=== PATIENT | female | born 1985 | race African-American/Black ===

== ENCOUNTER 2016-06-26 10:09 | Emergency (ER) | payer OTHER ==
[~2016-06-26] VITALS: Ht 154.9 cm; Wt 59.0 kg
[~2016-06-26 10:09] MED LIST: CIPROFLOXACIN500 M1 PO; DIFLUCAN200 MG PO; MACROBID 100 M100 M1 PO
[2016-06-26 10:14] VITALS: BP 106/68
[2016-06-26 11:32] LABS: URINE BILIRUBIN NEGATIVE (Negative); URINE BLOOD NEGATIVE (Negative); URINE COLOR YELLOW; URINE GLUCOSE-RANDOM* NEGATIVE (Negative); URINE KETONES NEGATIVE (Negative); URINE NITRITE NEGATIVE (Negative); URINE PROTEIN (DIPSTICK) NEGATIVE (Negative); URINE UROBILINOGEN 0.2 E.U./dl (0.2-1.0)
== END 2016-06-26 11:39 | disposition home or self-care (01) ==
LOC: ER 10:09
PROVIDERS: Physician Assistant
DX: O23.592 Infection of other part of genital tract in pregnancy, second trimester (principal); Z87.891 Personal history of nicotine dependence; Z11.3 Encounter for screening for infections with a predominantly sexual mode of transmission

== ENCOUNTER 2016-11-01 15:56 | Emergency (ER) | payer OTHER ==
[~2016-11-01] VITALS: Ht 154.9 cm; Wt 65.8 kg
[2016-11-01] MEDS ORDERED: CYCLOBENZAPRINE5 MG PO (16:02)
[2016-11-01] MEDS ORDERED: ENDOCET 5-3251 EACH PO (16:03)
[2016-11-01 17:28] LABS: ABSOLUTE NEUTROPHILS 4.5 thou/uL (1.4-8.2); BASOPHILS 0.4 % (0.0-2.0); EOSINOPHILS 3.3 % (0.0-3.0); HEMATOCRIT 33.2 % (37.0-47.0); HEMOGLOBIN 11.4 gm/dL (12.0-15.0); MCH 31.1 pg (26.0-34.0); MCHC 34.4 g/dL (28.0-37.0); MCV 90.4 fL (80.0-100.0); MONOCYTES 4.5 % (1.0-8.0); PLATELET COUNT 349 thou/uL (150-400); POLYS 69.8 % (36.0-66.0); RBC 3.67 mil/uL (4.20-5.00); RDW 14.6 % (10.5-14.5); WBC 6.5 thou/uL (4.0-11.0)
[2016-11-01 17:31] LABS: MANUAL DIFF NO
[2016-11-01 17:36] LABS: CALCIUM 8.9 mg/dL (8.5-10.1); CREATININE 0.6 mg/dL (0.6-1.0); POTASSIUM 3.4 mmol/L (3.5-5.1)
[2016-11-01] MEDS ORDERED: REGLAN 10 MG TA10 MG PO (19:09)
[2016-11-01 19:14] VITALS: BP 138/89
== END 2016-11-01 19:15 | disposition home or self-care (01) ==
LOC: ER 15:56
PROVIDERS: Physician Assistant
DX: O89.4 Spinal and epidural anesthesia-induced headache during the puerperium (principal); Z87.891 Personal history of nicotine dependence

== ENCOUNTER 2017-04-18 15:11 | Emergency (ER) | payer OTHER ==
[~2017-04-18] VITALS: Ht 149.9 cm; Wt 59.0 kg
[~2017-04-18 15:11] MED LIST changes: +CYCLOBENZAPRINE5 MG PO; +ENDOCET 5-3251 EACH PO; +REGLAN 10 MG TA10 MG PO
[2017-04-18 15:36] LABS: URINE BILIRUBIN NEGATIVE (Negative); URINE BLOOD NEGATIVE (Negative); URINE CLARITY CLEAR; URINE COLOR YELLOW; URINE GLUCOSE-RANDOM* NEGATIVE (Negative); URINE KETONES NEGATIVE (Negative); URINE LEUKOCYTES NEGATIVE (Negative); URINE NITRITE NEGATIVE (Negative); URINE PROTEIN (DIPSTICK) 2+ (Negative); URINE SPECIFIC GRAVITY 1.025 (1.005-1.035)
[2017-04-18 15:44] LABS: CASTS None Seen /LPF (None Seen); MUCUS >6 Heavy strn/LPF (None Seen); SQUAMOUS 0-3 Few /LPF (0-3); URINE WBC 0-5 Rare /HPF (0-5)
[2017-04-18 15:45] LABS: CRYSTALS None Seen /LPF (None Seen); URINE RBC 0-2 Rare /HPF (0-2)
[2017-04-18] MEDS ORDERED: KEFLEX500 M1 PO (15:58)
[2017-04-18] MEDS ORDERED: FLAGYL500 MG PO (16:01)
== END 2017-04-18 16:26 | disposition home or self-care (01) ==
LOC: ER 15:11
PROVIDERS: Physician Assistant
DX: T19.2XXA Foreign body in vulva and vagina, initial encounter (principal); N39.0 Urinary tract infection, site not specified; N76.0 Acute vaginitis; X58.XXXA Exposure to other specified factors, initial encounter; Y93.89 Activity, other specified; Y92.89 Other specified places as the place of occurrence of the external cause; Y99.8 Other external cause status

== ENCOUNTER 2017-05-27 09:40 | Emergency (ER) | payer OTHER ==
[~2017-05-27] VITALS: Ht 149.9 cm; Wt 59.0 kg
[~2017-05-27 09:40] MED LIST changes: +FLAGYL500 MG PO; +KEFLEX500 M1 PO
[2017-05-27 09:52] VITALS: BP 158/115
[2017-05-27 10:02] LABS: URINE BILIRUBIN NEGATIVE (Negative); URINE BLOOD 1+ (Negative); URINE CLARITY CLEAR; URINE COLOR YELLOW; URINE GLUCOSE-RANDOM* NEGATIVE (Negative); URINE KETONES NEGATIVE (Negative); URINE LEUKOCYTES NEGATIVE (Negative); URINE NITRITE NEGATIVE (Negative); URINE PROTEIN (DIPSTICK) NEGATIVE (Negative); URINE UROBILINOGEN 0.2 E.U./dl (0.2-1.0)
[2017-05-27 10:15] LABS: SQUAMOUS 0-3 Few /LPF (0-3)
[2017-05-27 10:16] LABS: BACTERIA 1-9 Few /HPF (None Seen); CASTS None Seen /LPF (None Seen); CRYSTALS None Seen /LPF (None Seen); URINE RBC 0-2 Rare /HPF (0-2); URINE WBC None Seen /HPF (0-5)
== END 2017-05-27 10:29 | disposition home or self-care (01) ==
LOC: ER 09:40
PROVIDERS: Emergency Medicine
DX: N89.8 Other specified noninflammatory disorders of vagina (principal); L29.8 Other pruritus; Z87.891 Personal history of nicotine dependence

== ENCOUNTER 2018-06-06 15:08 | Emergency (ER) | payer OTHER ==
[~2018-06-06] VITALS: Ht 149.9 cm; Wt 59.0 kg
[2018-06-06 16:58] LABS: HEMATOCRIT 39.2 % (37.0-47.0); HEMOGLOBIN 13.3 gm/dL (12.0-15.0); MCH 31.1 pg (26.0-34.0); MCHC 33.9 g/dL (28.0-37.0); MCV 91.9 fL (80.0-100.0); RBC 4.27 mil/uL (4.20-5.00); RDW 12.5 % (10.5-14.5)
[2018-06-06 17:06] LABS: CALCIUM 10.1 mg/dL (8.5-10.1); CREATININE 0.5 mg/dL (0.6-1.0); POTASSIUM 4.4 mmol/L (3.5-5.1)
[2018-06-06 18:46] VITALS: BP 147/83
== END 2018-06-06 18:47 | disposition home or self-care (01) ==
LOC: ER 15:08
PROVIDERS: Emergency Medicine
DX: O20.0 Threatened abortion (principal); Z3A.01 Less than 8 weeks gestation of pregnancy; Z87.891 Personal history of nicotine dependence

== ENCOUNTER 2018-07-09 12:29 | Emergency (ER) | payer OTHER ==
[~2018-07-09] VITALS: Ht 149.9 cm; Wt 59.0 kg
[2018-07-09 12:50] LABS: URINE BILIRUBIN NEGATIVE (Negative); URINE BLOOD NEGATIVE (Negative); URINE CLARITY CLEAR; URINE COLOR YELLOW; URINE GLUCOSE-RANDOM* NEGATIVE (Negative); URINE KETONES NEGATIVE (Negative); URINE LEUKOCYTES-REFLEX NEGATIVE (Negative); URINE NITRITE-REFLEX NEGATIVE (Negative); URINE PROTEIN (DIPSTICK) NEGATIVE (Negative); URINE SPECIFIC GRAVITY <= 1.005 (1.005-1.035); URINE UROBILINOGEN 0.2 E.U./dl (0.2-1.0)
[2018-07-09 15:18] VITALS: BP 134/78
== END 2018-07-09 15:19 | disposition home or self-care (01) ==
LOC: ER 12:29
PROVIDERS: Physician Assistant
DX: O20.9 Hemorrhage in early pregnancy, unspecified (principal); O21.8 Other vomiting complicating pregnancy; O10.911 Unspecified pre-existing hypertension complicating pregnancy, first trimester; Z3A.11 11 weeks gestation of pregnancy; Z87.891 Personal history of nicotine dependence

== ENCOUNTER 2018-07-25 09:12 | Emergency (ER) | payer OTHER ==
[~2018-07-25] VITALS: Ht 157.5 cm; Wt 63.5 kg
[2018-07-25 09:35] LABS: URINE BLOOD 1+ (Negative); URINE CLARITY CLEAR; URINE COLOR YELLOW; URINE GLUCOSE-RANDOM* NEGATIVE (Negative); URINE KETONES NEGATIVE (Negative); URINE LEUKOCYTES-REFLEX NEGATIVE (Negative); URINE NITRITE-REFLEX NEGATIVE (Negative); URINE PROTEIN (DIPSTICK) TRACE (Negative)
[2018-07-25 09:39] LABS: ICTOTEST (BILI CONFIRMATORY) Negative (Negative); URINE BILIRUBIN NEGATIVE (Negative)
[2018-07-25 09:43] LABS: CASTS None Seen /LPF (None Seen); CRYSTALS None Seen /LPF (None Seen); MUCUS >6 Heavy strn/LPF (None Seen); SQUAMOUS None Seen /LPF (0-3); URINE RBC 0-2 Rare /HPF (0-2); URINE WBC-REFLEX 6-15 Few /HPF (0-5)
[2018-07-25] MEDS ORDERED: FLAGYL500 M1 PO (12:41)
[2018-07-25 12:57] VITALS: BP 115/82
== END 2018-07-25 12:58 | disposition home or self-care (01) ==
LOC: ER 09:12
PROVIDERS: Emergency Medicine
DX: O20.0 Threatened abortion (principal); O16.1 Unspecified maternal hypertension, first trimester; Z87.891 Personal history of nicotine dependence; Z3A.13 13 weeks gestation of pregnancy

== ENCOUNTER 2018-10-31 10:50 | Emergency (ER) | payer OTHER ==
[~2018-10-31] VITALS: Ht 149.9 cm; Wt 59.0 kg
[~2018-10-31 10:50] MED LIST changes: +FLAGYL500 M1 PO
[2018-10-31 11:19] LABS: URINE BILIRUBIN NEGATIVE (Negative); URINE BLOOD NEGATIVE (Negative); URINE CLARITY CLEAR; URINE COLOR YELLOW; URINE GLUCOSE-RANDOM* NEGATIVE (Negative); URINE KETONES NEGATIVE (Negative); URINE LEUKOCYTES-REFLEX TRACE (Negative); URINE NITRITE-REFLEX NEGATIVE (Negative); URINE PROTEIN (DIPSTICK) NEGATIVE (Negative); URINE UROBILINOGEN 0.2 E.U./dl (0.2-1.0)
[2018-10-31 12:13] LABS: SQUAMOUS >10 Many /LPF (0-3)
[2018-10-31 12:14] LABS: CASTS None Seen /LPF (None Seen); URINE WBC 0-5 Rare /HPF (0-5)
[2018-10-31 12:15] LABS: CRYSTALS None Seen /LPF (None Seen); URINE RBC None Seen /HPF (0-2)
[2018-10-31] MEDS ORDERED: DIFLUCAN200 MG PO (12:15)
[2018-10-31] MEDS ORDERED: NAPROSYN500 MG PO (12:15)
[2018-10-31] MEDS ORDERED: NORFLEX100 MG PO (12:15)
[2018-10-31 12:33] VITALS: BP 142/85
== END 2018-10-31 12:33 | disposition home or self-care (01) ==
LOC: ER 10:50
PROVIDERS: Nurse Practitioner Family
DX: S39.012A Strain of muscle, fascia and tendon of lower back, initial encounter (principal); B37.3 Candidiasis of vulva and vagina; I10 Essential (primary) hypertension; Z87.891 Personal history of nicotine dependence; W18.39XA Other fall on same level, initial encounter; Y92.89 Other specified places as the place of occurrence of the external cause; Y93.89 Activity, other specified; Y99.8 Other external cause status

== ENCOUNTER 2020-01-07 19:32 | Emergency (ER) | payer OTHER ==
[~2020-01-07 19:32] MED LIST changes: +NAPROSYN500 MG PO; +NORFLEX100 MG PO
== END 2020-01-07 19:40 | disposition left against medical advice (07) ==
LOC: ER 19:32
DX: O46.90 Antepartum hemorrhage, unspecified, unspecified trimester (principal); Z3A.01 Less than 8 weeks gestation of pregnancy; Z53.21 Procedure and treatment not carried out due to patient leaving prior to being seen by health care provider